=== PATIENT | male | born 1995 | race Caucasian/White ===

== ENCOUNTER 2017-02-22 14:21 | Observation (INO) | payer OTHER ==
[~2017-02-22] VITALS: Ht 177.8 cm; Wt 67.0 kg
--- NOTE | ~2017-02-22 | ER ---
PATIENT'S NAME: UGO CARROLL [facility] AGE: 21 Y [address] ROOM: [place] [address] LOCATION: [facility] ADMIT DATE: 02/22/2017 ER/Outpatient Report DISCHARGE DATE: FAMILY PHYSICIAN: Susie Figueroa APRN ATTENDING PHYSICIAN: SAVI MCINTYRE HISTORY OF PRESENT ILLNESS: This patient is a 21-year-old male who suffered a left hand injury. He has a fracture of the left third metacarpal and has open, large, deep laceration to the palmar surface of his hand that extends to the webspace between his pointer and middle finger and middle and ring finger extending up to the dorsum of his hand. The patient is here to see Dr. Mcintyre. Dr. Mcintyre is going to take him back to the operating room for irrigation, debridement, and repair. PAST MEDICAL HISTORY: The patient has no past medical history. PAST SURGICAL HISTORY: No previous surgeries. SOCIAL HISTORY: Nonsmoker and nondrinker. MEDICATIONS: He is on no current medications. ALLERGIES: HE HAS NO ALLERGIES. PHYSICAL EXAMINATION: LUNGS: Clear. HEART: Regular. ABDOMEN: Soft, flat, nondistended, and nontender. NEUROLOGIC: Intact. EXTREMITIES: See Dr. Mcintyre's dictation in regard to the exam of his left arm and hand specifically where his injury is. EMERGENCY DEPARTMENT COURSE: We did give him some morphine for pain here in the emergency department. IMPRESSION: Left hand injury. PLAN: PATIENT'S NAME: UGO CARROLL [facility] AGE: 21 Y [address] ROOM: [place] [address] LOCATION: [facility] ADMIT DATE: 02/22/2017 ER/Outpatient Report DISCHARGE DATE: FAMILY PHYSICIAN: Susie Figueroa APRN ATTENDING PHYSICIAN: SAVI MCINTYRE The patient will be taken back to operation per Dr. Mcintyre for irrigation, debridement, and repair of left hand injury. MD YOVANNY DOTY/modl /[id number] d: 02/22/171912 t: 02/26/17617, OUTPATIENT REPORT
--- NOTE | ~2017-02-22 | OR ---
PATIENT'S NAME: UGO CHU [facility] AGE: 21 Y [address] ROOM: [place] [address] LOCATION: [facility] ADMIT DATE: 02/22/2017 OR/Procedure Report DISCHARGE DATE: FAMILY PHYSICIAN: Susie Figueroa APRN ATTENDING PHYSICIAN: SAVI MCINTYRE SURGEON: Savi Mcintyre MD CIRCULATION MAN: None. DATE OF PROCEDURE: 02/22/2017 PREOPERATIVE DIAGNOSIS: Complex laceration, left hand, with open fracture of left third metacarpal shaft. POSTOPERATIVE DIAGNOSIS: Complex laceration, left hand, with open fracture of left third metacarpal shaft with disruption of the third interspace intermetacarpal ligament. PROCEDURE PERFORMED: 1. Irrigation and debridement of open fracture of left hand third metacarpal shaft (including debridement of skin, muscle, and subcutaneous adipose tissue). 2. Repair of complex left hand laceration (12 cm). ANESTHESIA: General endotracheal anesthesia plus supraclavicular nerve block. DRAINS: None. SPECIMEN: None. COMPLICATIONS: None. 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 He has a deep complex laceration extending longitudinally from the base of the palm to the webspace between the third and fourth digits and extending dorsally to the base of the dorsal webspace between digits 3 and 4. Preoperative radiographs demonstrate an associated fracture involving the ulnar cortex of the third metacarpal shaft. There was a 1 cm diameter mildly displaced fragment involving the ulnar two-thirds of the width of the third metacarpal shaft. The fracture does not extend through the radial cortex of the third metacarpal shaft. Potential adverse sequelae of the injury itself as well as risks, benefits, limitations, and alternatives to surgery have been thoroughly reviewed. We have discussed the potential for infection, skin necrosis, need for further surgery, and the potential for permanent neurologic deficits. The patient PATIENT'S NAME: UGO CHU [facility] AGE: 21 Y [address] ROOM: [place] [address] LOCATION: [facility] ADMIT DATE: 02/22/2017 OR/Procedure Report DISCHARGE DATE: FAMILY PHYSICIAN: Susie Figueroa APRN ATTENDING PHYSICIAN: SAVI MCINTYRE reports partially decreased sensation to light touch all digits preoperatively. The patient demonstrates ability to flex the DIP and PIP joints of all digits preoperatively. Informed consent granted. DESCRIPTION OF PROCEDURE: The patient was positioned supine. Regional anesthesia and general anesthesia were administered preoperatively. Prophylactic antibiotics and a tetanus booster had been administered preoperatively. Photographic documentation of the wound was obtained. A well- padded pneumatic tourniquet was placed around the left proximal arm, and the left upper extremity was prepped and draped with vigilant sterile technique. Examination under anesthesia demonstrated a deep laceration extending from the base of the palm through the volar and dorsal aspects of the webspace between the third and fourth metacarpal heads. The laceration extended down to and through the interosseous muscles. The interosseous muscles were severely macerated. Avulsion of the radial digital nerve and vessels to the fourth digit was noted. The flexor tendon sheaths to the digits 3 and 4 were intact. There was maceration of skin, interosseous musculature, and subcutaneous adipose tissue. This was all debrided sharply. The wound was copiously irrigated with 2000 mL of sterile saline containing bacitracin. There was no remnant of the intermetacarpal ligament for repair. The fracture was confirmed to be non-displaced, but the fracture interface was visualized and thoroughly irrigated. The incision was reapproximated with multiple horizontal mattress interrupted 2-0 nylon sutures and several supplemental simple 2-0 nylon sutures. It should be noted that the tourniquet was released following irrigation and debridement, and hemostasis was excellent. There was excellent capillary refill to the tips of all digits. Fluoroscopic imaging confirmed that the fracture fragment involving the ulnar cortex of the third metacarpal remained negligibly displaced at the conclusion of the case. Dressing consisted of Xeroform gauze, followed by fluff gauze, and a very well- padded volar splint extending to the tips of the digits. There were no complications. MD MATT PEREZ/irena /[id number] d: 02/23/17 0140 t: 02/23/17 1751, OPERATIVE SUMMARY
--- NOTE | ~2017-02-22 | HP ---
PATIENT'S NAME: UGO CHU [facility] AGE: 21 Y [address] 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 He initially presented to the [place] [facility], where he was initially evaluated by the Emergency Room nurse, who contacted me. The Emergency Room nurse had already attempted to contact a Hand specialist (Dr. Willem Michaud). Dr. Michaud was not available, and the patient required urgent intervention. He denies pain elsewhere as a result of the incident. Complex lacerations were noted in his hand. He notes decreased sensation at the tips of digits two, three, and four. He denies history of previous discomfort or dysfunction in his left hand. PRESENT MEDICATIONS: None. ALLERGIES: NO KNOWN DRUG ALLERGIES. ACTIVE MEDICAL PROBLEMS: None. SOCIAL HISTORY: Right-hand dominant. [place] diallo. . Accompanied by his , who is a Dental surgical assistant certified. She is appropriately concerned. REVIEW OF SYSTEMS: Last tetanus booster was today (administered at the [place] [facility] at my request prior to transfer). The patient also received a dose of prophylactic Ancef prior to transfer. PHYSICAL EXAMINATION: GENERAL: Alert, oriented, well-hydrated, and well-nourished male, who is in no distress. EXTREMITIES: There is good capillary refill at the tips of all digits of the left hand. There is no swelling, tenderness, or deformity at the left wrist. I removed the bandage from the left hand. There was a complex full-thickness laceration extending from the base of the third digit to the volar aspect of PATIENT'S NAME: UGO CHU [facility] AGE: 21 Y [address] ROOM: [place] [address] LOCATION: [facility] ADMIT DATE: 02/22/2017 History & Physical DISCHARGE DATE: FAMILY PHYSICIAN: Susie Figueroa APRN ATTENDING PHYSICIAN: SAVI MCINTYRE the wrist. The flexor tendon sheaths of the third and fourth rays are exposed, but appeared to be intact. He is able to actively flex the distal interphalangeal joints and proximal interphalangeal joints of digits two, three, four, and five. There is mild active hemorrhage from the palm laceration. Sensation to light touch is present, but subjectively decreased at the tips of all five digits. RADIOGRAPHS: Left hand radiographs demonstrated an avulsion fracture from the third metacarpal shaft, but the fracture does not appear to extend all the way through the shaft. The size of the avulsion fracture measures approximately 1 cm. IMPRESSION: Complex laceration of left hand with associated open fracture of third metacarpal. Potential associated flexor tendon laceration. Potential intermetatarsal ligament disruption. Potential digital neurovascular bundle disruption. RECOMMENDATIONS: I have recommended prompt exploration, irrigation, and debridement. He understands that open reduction and internal fixation of the third metacarpal fracture may be necessary. He understands that flexor tendon repair may be necessary. We have discussed potential adverse sequelae of the injury itself (including infection, stiffness, and neurovascular compromise). He understands that there is a potential for malunion of the third metacarpal fracture, and that internal fixation may not be indicated at the present time (but may be required later). He understands that additional surgery may be necessary (if he were to develop an infection and/or a painful nonunion of the third metacarpal). We will proceed to the Operating Room promptly (pending OR availability). Additional preoperative prophylactic antibiotics will be administered, and we will keep him overnight to receive additional antibiotics. MD MATT PEREZ/irena /[id number] D: [id number] T: [id number] HISTORY & PHYSICAL
--- NOTE | 2017-02-23 07:44 | NUR ---
Significant Event: Up from PACU at 2114. Dressing clean, dry and intact. CSM WNL. Voids without difficulty. 1 assist with transfers. Family at bedside. Percocet last at 035. Follow up:
--- NOTE | 2017-02-23 10:05 | NUR ---
Introduced self/role to patient and his Cammie. They live in [place]. Their only need was to get copies of his medical record so they can send it into [facility]. 1130 Filled out a Medical Records Release Form, had patient sign it. Gave him copies of ER, History and Physical and Operative Summary. Signed Release Form placed in his chart.
[2017-02-23] MEDS ORDERED: PERCOCET 5-3251 EACH PO (10:52)
[2017-02-23] MEDS ORDERED: KEFLEX500 MG PO (10:53)
--- NOTE | 2017-02-23 14:33 | NUR ---
Significant Event: Pt up ad elroy. Percocet given at 1030 with good relief. Good CSM to left hand. Dressings d/i. Left arm in sling at all times. Showered. assists with cares. Passing flatus. VS stable. Dc to home at 1135, states understanding of all dc instructions, pain management, s/s of infection to wound, and follow up appointments. All belongings sent with pt. Follow up:
== END 2017-02-23 12:01 | disposition disaster alternative care site (69) ==
LOC: GACC 14:21 → GSDC 16:16 → GPSCC 16:16 → G3N 16:36 → GSDC 19:35 → G3N 19:35 → GSDC 02-23 12:01 → G3N 02-23 12:01
PROVIDERS: ADMIT Orthopaedic Surgery
PROC: 0JDK0ZZ Extraction of Left Hand Subcutaneous Tissue and Fascia, Open Approach (ICD-10-PCS; principal; 2017-02-22)
PROC: 0KQD0ZZ Repair Left Hand Muscle, Open Approach (ICD-10-PCS; 2017-02-22)
DX: S62.35 Nondisplaced fracture of shaft of other metacarpal bone (principal); S61.412A Laceration without foreign body of left hand, initial encounter
CPT/HCPCS: G0378; J0690; J2250; J2270; J2405; J3010; J7030; J7121